=== PATIENT | female | born 1985 | race Caucasian/White ===

== ENCOUNTER → 2023-07-29 | Outpatient (CLI) | payer OTHER ==
[2023-07-29 09:50] LABS: CALCIUM 9.2 mg/dL (8.4-10.2); CREATININE, serum 0.89 mg/dL (0.57-1.11); POTASSIUM 4.1 mEq/L (3.5-4.5)
[2023-08-05 08:13] LABS: CORTISOL FREE - SERUM 0.047 ug/dL (())
[2023-08-05 14:12] LABS: RENIN,PLASMA 2.221 ng/mL/hr (())
== END ==
LOC: COL.LAB 08:27
PROVIDERS: Urology
DX: D35.00 Benign neoplasm of unspecified adrenal gland (principal); E27.8 Other specified disorders of adrenal gland